=== PATIENT | female | born 2000 | race African-American/Black ===

== ENCOUNTER 2020-05-12 09:25 | Emergency (ER) | payer SELFPAY ==
[~2020-05-12] VITALS: Ht 160 cm; Wt 59.1 kg
[2020-05-12 09:36] VITALS: TEMP 98.1
[2020-05-12 10:11] LABS: COLLECTION METHOD CLEAN CATCH
[2020-05-12 10:23] LABS: PH 6 (5-8); SQUAMOUS EPITHELIAL None Seen /hpf; URINE APPEARANCE Cloudy; URINE BACTERIA None Seen /hpf; URINE BILIRUBIN Negative (NEGATIVE); URINE BLOOD 3+ (NEGATIVE); URINE COLOR Amber; URINE GLUCOSE Negative (NEGATIVE); URINE KETONE Negative (NEGATIVE); URINE LEUKOCYTE ESTERASE Negative (NEGATIVE); URINE NITRATE Negative (NEGATIVE); URINE PROTEIN(semi-quant) 2+ (NEGATIVE); URINE RBC >50 /hpf; URINE UROBILINOGEN Negative (NEGATIVE)
[2020-05-12 10:25] LABS: BASO % 0.8 % (0.0-2.0); EOS # 0.1 (0.0-0.7); EOS % 3.4 % (0-4.0); GRAN # 1.6 (1.4-6.5); GRAN % 43.9 % (42.2-75.2); HEMATOCRIT 39.1 % (35.0-45.0); HEMOGLOBIN 12.9 g/dl (12.0-15.0); LYMPH # 1.4 (1.2-3.4); LYMPH % 39.7 % (20.0-51.0); MEAN CELL VOLUME 96 fl (80.0-95.0); MEAN CORPUSCULAR HEMOGLOBIN 32 pg (26.0-32.0); MEAN CORPUSCULAR HGB CONC 33 g/dl (33.0-37.0); MEAN PLATELET VOLUME 10.3 fl (7.4-10.4); MONO # 0.4 (0.1-0.6); MONO % 11.9 % (1.7-9.3); PLATELET COUNT 251 K/mm3 (130-400); RED BLOOD COUNT 4.08 M/mm3 (4.10-5.30); REDCELL DISTRIBUTION WIDTH-CV 12.6 % (11.5-14.5)
[2020-05-12] MEDS ORDERED: SPRINTEC 35 MCG1 TAB PO ×2 (11:30→11:42)
[2020-05-12 14:37] VITALS: BP 119/65; PULSE 76
== END 2020-05-12 11:46 | disposition home or self-care (01) ==
LOC: COL.ER 09:25
PROVIDERS: Family Medicine
DX: N93.8 Other specified abnormal uterine and vaginal bleeding (principal); Z32.02 Encounter for pregnancy test, result negative